=== PATIENT | female | born 2000 | race Caucasian/White ===

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

== ENCOUNTER 2018-02-09 02:13 | Emergency (ER) | payer BC ==
[2018-02-09 02:16] VITALS: BP 136/90
--- NOTE | 2018-02-09 02:42 | EDPHY ---
H & P Stated Complaint: RIGHT ANKLE PAIN S/P FALL ON STAIRS Time Seen by Provider: 02/09/18 02:19 HPI/ROS: HPI: The patient presents with right ankle pain and swelling which has been present for the last several hours after she was walking up a flight of stairs and landed funny on her ankle internally rotating it. She has had ongoing pain in the lateral ankle which is achy and constant, worse with walking. She denies any numbness or tingling. She has no prior ankle injuries. She was drinking alcohol tonight. REVIEW OF SYSTEMS 10 systems were reviewed and negative with the exception of the elements mentioned in the history of present illness. PMHx: Prior foot fracture TRAUMA PHYSICAL General Appearance: Alert, no distress Head: Atraumatic Respiratory: Breathing comfortably Skin: No lacerations, abrasions present throughout her right leg Extremities: Right ankle with tenderness and mild edema laterally with limited range of motion of the ankle secondary to pain, 2+ DP pulses, full range of motion of toes Neurological: A&Ox3, GCS=15,normal motor function with 5/5 strength in all 4 extremities, normal sensory exam Source: Patient Exam Limitations: No limitations - Personal History Current Tetanus/Diphtheria Vaccine: Yes Current Tetanus Diphtheria and Acellular Pertussis (TDAP): Yes - Medical/Surgical History Hx Asthma: No Hx Chronic Respiratory Disease: No Hx Diabetes: No Hx Cardiac Disease: No Hx Renal Disease: No Hx Cirrhosis: No Hx Alcoholism: No Hx HIV/AIDS: No Hx Splenectomy or Spleen Trauma: No Other PMH: DENIES - Social History Smoking Status: Never smoked Constitutional: Initial Vital Signs Temperature (C) 36.8 C 02/09/18 02:15 Heart Rate 97 02/09/18 02:15 Respiratory Rate 18 02/09/18 02:15 Blood Pressure 136/90 H 02/09/18 02:15 O2 Sat (%) 94 02/09/18 02:15 O2 Delivery Mode Room Air Allergies/Adverse Reactions: No Known Allergies Allergy (Unverified 02/09/18 02:16) Home Medications: Medication Instructions Recorded NK [No Known Home Meds] 03/01/17 Medical Decision Making - Diagnostics Imaging Results: X-ray right ankle three view shows no fracture, no dislocation, interpreted by me, radiology interpretation is pending. Imaging: I viewed and interpreted images myself Procedures: SPLINT Procedure: Splint placement. A Velcro stirrup ankle splint was applied to the right ankle by the tech. After application of the splint I returned and re-examined the patient. The splint was adequately immobilizing the joint and distal to the splint the patient's circulation and sensation was intact. Differential Diagnosis: 17-year-old female presents after drinking alcohol and inverting her ankle while walking up stairs prior to arrival with right ankle pain. She is neurovascularly intact. Differential diagnosis includes ankle sprain, ankle fracture, ankle dislocation. X-rays were obtained and these were unremarkable. The patient was placed in a stirrup splint and discharged home with instructions for rice and orthopedic follow-up if her pain or symptoms continue for more than 1 week. Departure - Departure Disposition: Home, Routine, Self-Care Clinical Impression: Right ankle sprain Qualifiers: Encounter type: initial encounter Involved ligament of ankle: unspecified ligament Qualified Code(s): S93.401A - Sprain of unspecified ligament of right ankle, initial encounter Condition: Good Instructions: Ankle Sprain (ED), Ankle Stirrup Splint (ED) Additional Instructions: I recommend you use ice, elevation, splint, ibuprofen 400 mg or acetaminophen 650 mg every 6 hr as needed for pain. If you continue to have pain for more than 1 week, I have given you information for the orthopedist whom you can make a follow-up appointment with. Referrals: Arley Muñoz [Student Hospitalist] - As per Instructions
== END 2018-02-09 03:14 | disposition home or self-care (01) ==
DX: S93.401A Sprain of unspecified ligament of right ankle, initial encounter (principal); W10.8XXA Fall (on) (from) other stairs and steps, initial encounter; Y92.9 Unspecified place or not applicable; F10.929 Alcohol use, unspecified with intoxication, unspecified
CPT/HCPCS: L4350